=== PATIENT | female | born 1950 | race Caucasian/White ===

== ENCOUNTER 2019-01-19 07:23 | Day surgery (SDC) | payer OTHER ==
--- NOTE | 2019-01-17 13:17 | RAD REPORT ---
EXAM DESCRIPTION: Leah Thomas (2 Views)01/17/2019 1:09 pm CLINICAL HISTORY: Hypertension preop for cardiac catheterization COMPARISON: None FINDINGS: The lungs appear clear of acute infiltrate. The heart is mildly enlarged IMPRESSION: No acute abnormalities displayed
[2019-01-17 14:11] LABS: Absolute Lymphocytes (CBC) 4.5 K/uL (0.7-4.9); Basophils % 0.8 % (0-1.3); Hematocrit 36.1 % (36.0-45.0); Lymphocytes % 45.1 % (15.3-44.8); MPV 9.5 fL (7.6-11.3); RBC Red Blood Cell Count 4.17 M/uL (3.86-4.86)
[2019-01-17 14:13] LABS: Protime INR 1.03
[2019-01-17 14:22] LABS: Potassium 4.3 mmol/L (3.5-5.1)
[2019-01-17 14:54] LABS: Blood Morphology Comment NOT SEEN (NOT SEEN); Platelet Estimate ADEQ
--- NOTE | 2019-01-18 07:14 | EKG ---
Test Date: 2019-01-17 Test Time: 12:59:16 Dietary Server: TYRONE MEASUREMENT RESULTS: Intervals: Rate: 69 NM: 194 QRSD: 82 QT: 390 QTc: 417 [place]: P: 41 NM: 194 QRS: 33 T: 61 INTERPRETIVE STATEMENTS: Normal sinus rhythm Nonspecific ST and T wave abnormality Abnormal ECG Compared to ECG 06/23/2015 05:54:51 ST (T wave) deviation now present Ventricular premature complex(es) no longer present Electronically Signed On 01-18-19 07:13:52 CDT by Eliazar Davila
[~2019-01-19 07:23] MED LIST: NA CHLORIDE 0.9% 0 ML ONE
--- OUTSIDE RECORDS SUMMARY | 2019-01-19 07:26 | XMS REPORT ---
:1950 Author Organization [facility] Address [address] [place] [address] Dr. Stone [address] [place] [address] Care Team Providers Name Role Phone J LUIS ALEGRE Unavailable Unavailable Problems This patient has no known problems. Allergies, Adverse Reactions, Alerts This patient has no known allergies or adverse reactions. Medications This patient has no known medications. Results Test Description Test Time Test Comments Text Results Atomic Results Result Comments TISSUE EXAM 2018-01-17 15:36:00 Surgical Pathology Report Case: [id number] Authorizing Provider: J Luis Alegre MD Collected: 01/13/2018 1434 Ordering Location: [facility] Endoscopy Received: 01/13/2018 1601 Services Pathologist: Hector Wild MD Specimen: Rectal, RECTAL NEUROENDOCRINE LESION - ESD PART A RECTAL LESION, ENDOSCOPIC MUCOSAL RESECTION:WELL DIFFERENTIATED NEUROENDOCRINE NEOPLASM, COMPLETELY EXCISED.SEE DIAGNOSTIC COMMENT. Signing Pathologist Direct Phone Line: [phone] signed by Hector Wild MD on 01/17/2018 at 3:36 PMImmunohistochemical studies performed on block A5 demonstrate the neoplastic cells to be positive for synaptophysin, CD56, and Cam 5.2. They are negative for chromogranin. Proliferative index by Ki-67 is approximately less than 2%. Mitotic index is less than 1 per 10 high power field. 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 On the surface is a central submucosal nodule measuring 0.6 x 0.4 x 0.2 cm located 0.3 cm from its closest approach to the peripheral inked margin. The specimen is not oriented.Ink code: Periphery-blue, deep-black.The specimen is serially sectioned and submitted entirely in A1 through A7.Pictures are taken. CG/ew Performed. The following special studies were performed on this case and the interpretation is incorporated in the diagnostic report above:BLOCK A4- CAM 5.2, SYNAPTOPHYSIN, CHROMOGRANIN, CD56, KI-67The immunohistochemistry test was developed and its performance characteristics determined by [facility], Pathology Laboratory. It has not been cleared or approved by the U.S. Food and Drug Administration. The FDA has determined that such clearance or approval is not necessary. The test is used for clinical purposes. It should not be regarded as investigational or for research. This laboratory is certified under the Clinical Laboratory Improvement Amendments of 1988 (CLIA-88) as qualified to perform high complexity clinical laboratory testing. POCT-GLUCOSE METER 2018-01-14 06:03:00 Test Item Value Reference Range Comments POC-GLUCOSE METER (BEAKER) (test 191 mg/dL 70-110 TESTED AT [facility] [address] [place] [address] [id number]) [facility] [address] POCT-GLUCOSE [id number] 12:20:00 Test Item Value Reference Range Comments POC-GLUCOSE METER (BEAKER) 206 mg/dL 70-110 TESTED AT [address] (test [id number]=[id number]) [place] [id number]
--- OUTSIDE RECORDS SUMMARY | 2019-01-19 07:26 | XMS REPORT ---
:1950 Author Organization [employer] Care Team Providers Name Role Phone Severino Baeza Provider Role Unavailable Allergies No Known Allergies Problems Problem Type Condition Code Onset Dates Condition Status Problem Primary osteoarthritis of right knee M17.11 Active Problem Primary osteoarthritis of left knee M17.12 Active Medications No Known Medications Results No Known Results Summary Purpose eClinicalWorks Submission
--- OUTSIDE RECORDS SUMMARY | 2019-01-19 07:26 | XMS REPORT | Clinical Summary ---
:1950 Author Organization [facility] Address [address] [place] [address] Care Team Providers Name Role Phone Monica Edwards Jennifer Primary Care Provider Allergies Active Allergy Reactions Severity Noted Date Comments Prednisone Nausea And Vomiting 12/14/2017 flushed Medications Medication Sig Dispensed Refills Start Date End Date Status liraglutide 0.6 Inject 0 Active mg/0.1 mL (18 mg/3 subcutaneously. mL) PnIj insulin regular hum Inject 85 Units 0 Active U-500 conc (HUMULIN subcutaneously 2 R U-500, CONC, (two) times daily. INSULIN) 500 unit/mL Soln metFORMIN Take 1,000 mg by 0 Active (GLUCOPHAGE) 1000 mouth 2 (two) times MG tablet daily with breakfast and dinner. colesevelam Take 1,875 mg by 0 Active (WELCHOL) 625 mg mouth 2 (two) times tablet daily with breakfast and dinner. lisinopril Take 40 mg by mouth 0 Active (PRINIVIL,ZESTRIL) daily. 40 MG tablet metoprolol Take 100 mg by mouth 0 Active (TOPROL-XL) 100 MG daily. 24 hr tablet fexofenadine Take 180 mg by mouth 0 Active (SHER) 180 MG daily. tablet lansoprazole Take 30 mg by mouth 0 Active (PREVACID) 30 MG daily. capsule celecoxib Take 100 mg by mouth 0 Active (CELEBREX) 100 MG every 12 (twelve) capsule hours as needed for Pain. pregabalin (LYRICA) Take 100 mg by mouth 0 Active 100 MG capsule 2 (two) times daily. Active Problems No known active problems Social History Tobacco Use Types Packs/Day Years Used Date Never Smoker Smokeless Tobacco: Never Used Alcohol Use Drinks/Week oz/Week Comments No Sex Assigned at Date Recorded Not on file Job Start Date Occupation Industry Not on file Not on file Not on file Travel History Travel Start Travel End No recent travel history available. Last Filed Vital Signs Not on file Plan of Treatment Not on file Results Not on fileafter 01/18/2018 Insurance Payer Benefit Plan / Subscriber ID Type Phone Address Group [employer] - [employer] MEDICARE xxxxxxxx [facility] [phone] [address] MEDICARE MGD HMO POS [id number] [place] [address]
--- OUTSIDE RECORDS SUMMARY | 2019-01-19 07:26 | XMS REPORT ---
:1950 Author Organization eClinicalWorks Care Team Providers Name Role Phone Severino Baeza Provider Role Unavailable Allergies, Adverse Reactions, Alerts Substance Reaction Event Type Prednisone Info Not Available Drug Allergy Problems Problem Type Condition Code Onset Dates Condition Status Problem Primary osteoarthritis of right M17.11 Active knee Problem Primary osteoarthritis of left knee M17.12 Active Assessment Pain in joint of left knee M25.562 Active Assessment Pain in joint of right knee M25.561 Active Assessment Primary osteoarthritis of left knee M17.12 Active Assessment Primary osteoarthritis of right M17.11 Active knee Medications Medication Code Code Instructions Start End Status Dosage System Date Date HumuLIN R U-500 [facility] [id number] 500 UNIT/ML Active INJECT KwikPen Subcutaneous UNDER THE SKIN 120 UNITS TWICE A DAY Lisinopril [facility] 56178827627 40 MG Oral Active TAKE 1 TABLET BY MOUTH EVERY DAY aspirin [facility] 0 May 12, Active not 2018 defined Spironolactone [facility] 37084878762 50 MG Oral Active TAKE 1 TABLET BY MOUTH EVERY DAY OneTouch Verio [facility] [id number] - In Vitro Active USE TO CHECK BLOOD SUGARS ONCE DAILY Welchol [facility] 31369271167 625 MG Oral Active TAKE 2 TABLETS BY MOUTH TWICE A DAY WITH FOOD Victoza [facility] 09184000016 18 MG/3ML Active INJECT Subcutaneous UNDER THE SKIN 1.8MG EVERY DAY Metformin HCl [facility] 41716754171 1000 MG Oral Active TAKE 1 TABLET BY MOUTH TWICE A DAY WITH A MEAL BD Pen Needle [facility] 06676811174 32G X 4 MM Active USE 3 Anni U/F TIMES A DAY [place]rica ND 54855690423 75 MG Orally May 12, Active 1 capsule Once a day 2017 Viberzi [facility] 76346155779 75 MG Oral Active (Schedule IV Drug) TAKE 1 TABLET BY MOUTH TWICE A DAY Metoprolol [facility] 90067135949 100 MG Oral Active TAKE 1 Succinate ER TABLET BY MOUTH EVERY DAY Results Name Result Date Reference Range Unit Abnormality Flag Physical Therapy Summary Purpose eClinicalWorks Submission
--- OUTSIDE RECORDS SUMMARY | 2019-01-19 07:26 | XMS REPORT | Clinical Summary ---
:1950 Author Organization [facility] Address [address] [place] [address] Care Team Providers Name Role Phone Monica Edwards MD Primary Care Provider Allergies Active Allergy Reactions Severity Noted Date Comments Pollen Extracts 11/16/2017 Red itchy eyes, sneezing, runny nose Medications Medication Sig Dispensed Refills Start Date End Date Status lisinopril Take 40 mg by 4 09/04/2017 Active (PRINIVIL,ZESTRIL) mouth daily. 40 mg tablet metoprolol Take 100 mg by 3 09/06/2017 Active succinate XL mouth 2 (two) (TOPROL-XL) 100 mg times a day. 24 hr tablet diclofenac sodium 3 Apply 0 Active % gel topically. Rub 1-2 grams (1 gram=pea size) on affected areas 3-4 times daily doxepin (ZONALON) 5 Apply 0 Active % cream topically 3 (three) times a day. ub 1-2 grams (1 gram=pea size) on affected areas 3-4 times daily lansoprazole Take 30 mg by 0 Active (PREVACID) 30 MG mouth. capsule fexofenadine HCl Take 90 mg by 0 Active (FEXOFENADINE ORAL) mouth. iron,carb/vit C/vit Take 1 capsule 0 02/21/2018 Active B12/folic (IRON 100 by mouth. PLUS ORAL) blood sugar One touch 300 strip 6 03/18/2018 Active diagnostic strips verio test strip test strips strips, Use to check blood sugars 3-4 times daily HUMULIN R U-500, INJECT 120 18 Syringe 2 09/15/2018 Active CONC, KWIKPEN 500 UNITS UNDER unit/mL (3 mL) THE SKIN 2 insulin pen (TWO) TIMES A DAY. aspirin (ECOTRIN) Take 81 mg by 0 Active 81 MG enteric mouth daily. coated tablet cholecalciferol, Take 2,000 0 Active vitamin D3, Units by mouth (VITAMIN D3) 2,000 daily. unit capsule capsule spironolactone TAKE 1 TABLET 90 tablet 0 11/02/2018 Active (ALDACTONE) 50 MG BY MOUTH EVERY tabletIndications: DAY Essential hypertension ferrous sulfate, Take by mouth. 0 Active dried (IRON, DRIED, ORAL) multivitamin Take 1 capsule 0 Active capsule by mouth daily. empagliflozin-metfo Take 2 tablets 60 each 2 11/15/2018 Active rmin 5-1,000 mg by mouth tablet, IR & ER, daily. biphasic 24hrIndications: Type 2 diabetes mellitus with complication, without long-term current use of insulin (HCC) insulin degludec Inject 150 45 mL 0 11/15/2018 Active (TRESIBA FLEXTOUCH Units under U-200) 200 unit/mL the skin (3 mL) insulin daily. penIndications: Type II diabetes mellitus with manifestations, uncontrolled (HCC) pregabalin (LYRICA) Take 1 capsule 180 capsule 2 11/23/2018 Active 150 MG capsule (150 mg total) 0 by mouth 2 (two) times a day for 270 days. blood sugar USE TO CHECK 100 strip 11 12/13/2018 Active diagnostic strips BLOOD SUGARS (ONETOUCH VERIO) ONCE DAILY strip test strips WELCHOL 625 mg TAKE 2 TABLETS 360 tablet 0 12/26/2018 Active tablet (1,250 MG TOTAL) BY MOUTH 2 (TWO) TIMES A DAY WITH MEALS FOR 90 DAYS. NOVOLOG FLEXPEN INJECT 30 27 mL 1 01/03/2019 Active U-100 INSULIN 100 UNITS UNDER unit/mL (3 mL) THE SKIN 3 insulin (THREE) TIMES penIndications: A DAY WITH Type II diabetes MEALS. mellitus with manifestations, uncontrolled (HCC) TRESIBA FLEXTOUCH INJECT 100 45 Syringe 0 01/03/2019 Active U-200 200 unit/mL UNITS UNDER (3 mL) insulin THE SKIN penIndications: DAILY. Type II diabetes mellitus with manifestations, uncontrolled (HCC) liraglutide Inject 0.3 mL 9 pen 0 01/16/2019 Active (VICTOZA) 0.6 (1.8 mg total) mg/0.1 mL (18 mg/3 under the skin mL) pen injector daily. pen needle, To use with 100 each 2 01/16/2019 Active diabetic (BD Victoza once ULTRA-FINE BI PEN daily. NEEDLE) 32 gauge x " needleIndications: Type II diabetes mellitus with manifestations, uncontrolled (HCC) pen needle, Use to inject 350 each 2 01/16/2019 Active diabetic (BD Novolog ULTRA-FINE BI PEN insulin before NEEDLE) 32 gauge x each meal and " to correct needleIndications: elevated blood Type II diabetes sugar if mellitus with needed up to 4 manifestations, times daily. uncontrolled (HCC) insulin regular hum Inject 105 0 09/28/2016 Discontinued U-500 conc (HumuLIN Units under 9 R U-500, Conc, the skin 2 Kwikpen) 500 (two) times a unit/mL (3 mL) day. insulin pen metFORMIN Take 1 tablet 1 09/06/2017 Discontinued (GLUCOPHAGE) 1,000 by mouth 2 9 mg tablet (two) times a day. blood sugar Use to check 100 strip 11 12/06/2017 Discontinued diagnostic strips blood sugars 8 strip test strips 3-4 times daily colesevelam Take 2 tablets 360 tablet 0 12/21/2017 (WELCHOL) 625 mg (1,250 mg 8 tabletIndications: total) by Benign mouth 2 (two) neuroendocrine times a day tumor of rectum for 90 days. pregabalin (LYRICA) Take 1 capsule 90 capsule 2 12/21/2017 75 MG (75 mg total) 8 capsuleIndications: by mouth 3 Polyneuropathy (three) times associated with a day for 90 underlying disease days. (HCC) celecoxib Take 1 capsule 60 capsule 0 12/21/2017 Discontinued (CeleBREX) 200 MG (200 mg total) 8 capsuleIndications: by mouth 2 Spondylosis of (two) times a lumbar region day for 30 without myelopathy days. or radiculopathy liraglutide Inject 0.3 mL 9 pen 1 12/28/2017 Discontinued (VICTOZA) 0.6 (1.8 mg total) 9 mg/0.1 mL (18 mg/3 under the skin mL) pen injector daily. pen needle, To use with 100 each 2 12/28/2017 Discontinued diabetic (BD Victoza pen 9 ULTRA-FINE BI PEN NEEDLE) 32 gauge x 5/32" needle celecoxib Take 1 capsule 60 capsule 1 01/20/2018 Discontinued (CeleBREX) 200 MG (200 mg total) 8 capsuleIndications: by mouth 2 Spondylosis of (two) times a lumbar region day for 30 without myelopathy days. or radiculopathy celecoxib Take 200 mg by 0 Discontinued (CeleBREX) 200 MG mouth 2 (two) 8 capsule times a day. spironolactone Take 1 tablet 30 tablet 2 03/08/2018 Discontinued (ALDACTONE) 50 MG (50 mg total) 8 tabletIndications: by mouth Essential daily. hypertension tiZANidine Take 1 tablet 30 tablet 0 03/08/2018 (ZANAFLEX) 2 MG (2 mg total) 8 tabletIndications: by mouth every Chronic midline low 8 (eight) back pain without hours as sciatica needed for muscle spasms for up to 30 days. celecoxib TAKE 1 CAPSULE 60 capsule 0 03/18/2018 (CeleBREX) 200 MG (200 MG TOTAL) 8 capsuleIndications: BY MOUTH 2 Spondylosis of (TWO) TIMES A lumbar region DAY FOR 30 without myelopathy DAYS. or radiculopathy celecoxib Take 1 capsule 60 capsule 0 03/18/2018 Discontinued (CeleBREX) 200 MG (200 mg total) 8 capsule by mouth 2 (two) times a day. spironolactone Take 1 tablet 90 tablet 0 05/02/2018 Discontinued (ALDACTONE) 50 MG (50 mg total) 9 tabletIndications: by mouth Essential daily. hypertension LYRICA 75 mg TAKE 1 CAPSULE 90 capsule 0 05/27/2018 Discontinued capsule BY MOUTH THREE 8 TIMES A DAY pregabalin (LYRICA) Take 1 capsule 60 capsule 0 06/06/2018 Discontinued 75 MG capsule (75 mg total) 9 by mouth 2 (two) times a day for 30 days. colesevelam Take 2 tablets 360 tablet 0 05/27/2018 Discontinued (WELCHOL) 625 mg (1,250 mg 9 tablet total) by mouth 2 (two) times a day with meals for 90 days. insulin regular hum Inject 120 6 Syringe 2 06/21/2018 Discontinued U-500 conc (HumuLIN Units under 9 R U-500, Conc, the skin 2 Kwikpen) 500 (two) times a unit/mL (3 mL) day. insulin pen pen needle, To use with 100 each 2 06/21/2018 Discontinued diabetic (BD Victoza pen 9 ULTRA-FINE BI PEN NEEDLE) 32 gauge x 5/32" needle pen needle, To use with 100 each 2 06/30/2018 Discontinued diabetic (BD Victoza and 9 ULTRA-FINE BI PEN Humalog pens - NEEDLE) 32 gauge x patient using 5/32" needle 5 needles daily spironolactone TAKE 1 TABLET 90 tablet 0 08/04/2018 Discontinued (ALDACTONE) 50 MG BY MOUTH EVERY 9 tabletIndications: DAY Essential hypertension pregabalin (LYRICA) Take 1 capsule 60 capsule 0 08/16/2018 Discontinued 75 MG capsule (75 mg total) 9 by mouth 2 (two) times a day for 30 days. LYRICA 75 mg TAKE 1 CAPSULE 60 capsule 0 09/19/2018 capsule BY MOUTH TWICE 9 A DAY WELCHOL 625 mg TAKE 2 TABLETS 360 tablet 0 09/28/2018 Discontinued tablet (1,250 MG 9 TOTAL) BY MOUTH 2 (TWO) TIMES A DAY WITH MEALS FOR 90 DAYS. insulin degludec Inject 100 45 mL 0 10/10/2018 Discontinued (TRESIBA FLEXTOUCH Units under 9 U-200) 200 unit/mL the skin (3 mL) insulin daily. penIndications: Type II diabetes mellitus with manifestations, uncontrolled (HCC) metFORMIN Take 1 tablet 180 tablet 1 10/10/2018 Discontinued (GLUCOPHAGE) 1,000 (1,000 mg 9 mg total) by tabletIndications: mouth 2 (two) Type II diabetes times a day mellitus with with meals. manifestations, uncontrolled (HCC) insulin ASPART Inject 30 27 mL 1 10/10/2018 Discontinued (NovoLOG Flexpen Units under 9 U-100 Insulin) 100 the skin 3 unit/mL (3 mL) (three) times insulin a day with penIndications: meals. Type II diabetes mellitus with manifestations, uncontrolled (HCC) LYRICA 75 mg TAKE ONE 60 capsule 0 10/21/2018 Discontinued capsule CAPSULE BY 9 MOUTH TWICE A DAY sulfamethoxazole-tr Take 1 tablet 14 tablet 0 11/15/2018 imethoprim (BACTRIM by mouth 2 9 DS) 800-160 mg per (two) times a tabletIndications: day for 7 Acute cystitis with days. hematuria pregabalin (LYRICA) Take 1 capsule 180 capsule 0 11/15/2018 Discontinued 150 MG capsule (150 mg total) 9 by mouth 2 (two) times a day for 90 days. nitrofurantoin, Take 1 capsule 14 capsule 0 12/01/2018 macrocrystal-monohy (100 mg total) 9 drate, (MACROBID) by mouth 2 100 MG capsule (two) times a day for 7 days. NOVOLOG FLEXPEN INJECT 30 27 pen 1 12/05/2018 Discontinued U-100 INSULIN 100 UNITS UNDER 9 unit/mL (3 mL) THE SKIN 3 insulin (THREE) TIMES penIndications: A DAY WITH Type II diabetes MEALS. mellitus with manifestations, uncontrolled (HCC) Active Problems Problem Noted Date Hypertension 12/21/2017 Encounters Date Type Specialty Care Team Description 01/16/2019 Orders Only Family Medicine Monica Edwards Type II diabetes MD Jennifer mellitus with manifestations, uncontrolled (HCC) 01/03/2019 Refill Family Medicine Monica Edwards Type II kayli Rodriguez MD mellitus with manifestations, uncontrolled (HCC) 12/31/2018 Refill Family Monica Andrews Type DEBORA Rodriguez MD mellitus with manifestations, uncontrolled (HCC) 12/25/2018 Refill Family Medicine Monica Edwards MD 12/13/2018 Refill Family Medicine Monica Edwards MD 12/07/2018 Orders Only Family Medicine Jha, Acute cystitis with GUILLERMO [place] hematuria (Primary Dx) 12/04/2018 Refill Family Medicine Monica Edwards Type II kayli Rodriguez MD mellitus with manifestations, uncontrolled (HCC) 12/01/2018 Refill Family Medicine Jha, GUILLERMO [place] 11/23/2018 Refill Family Medicine Jha, Yolis, GUILLERMO 11/23/2018 Orders Only Family Medicine Jha, Acute cystitis with GUILLERMO [place] hematuria (Primary Dx) 11/15/2018 Office Visit Family Medicine Monica Edwards Acute cystitis with hematuria (Primary Dx); MD Jennifer Type 2 diabetes mellitus with complication, without long-term current use of insulin (HCC); Type II diabetes mellitus with manifestations, uncontrolled (HCC); Elevated liver enzymes 11/09/2018 Orders Only Orthopedic Surgery Alona Shepherd MA 11/02/2018 Refill Family Medicine Monica Edwards Essential hypertension MD Jennifer 10/21/2018 Refill Family Medicine Monica Edwards MD 10/10/2018 Office Visit Family Medicine Monica Edwards Type II diabetes mellitus with manifestations, uncontrolled (HCC) (Primary Dx); MD Jennifer Essential hypertension; Diabetic peripheral neuropathy associated with type 2 diabetes mellitus (HCC); Chest pain, atypical; Hip pain, bilateral; BMI 40.0-44.9, adult (HCC) 09/27/2018 Refill Family Medicine Monica Edwards MD 09/22/2018 Refill Family Medicine Monica Edwards MD 09/16/2018 Refill Family Medicine Monica Edwards MD 09/14/2018 Refill Family Medicine Monica Edwards MD 08/16/2018 Refill Family Medicine Monica Edwards MD 08/02/2018 Refill Family Medicine Monica Edwards Essential hypertension MD Jennifer 06/30/2018 Refill Family Medicine Jha, Yolis, GUILLERMO 06/21/2018 Refill Family Medicine Jha, Yolis, GUILLERMO 05/27/2018 Refill Family Medicine Monica Edwards MD 05/26/2018 Refill Family Medicine Jha, Yolis, GUILLERMO 05/23/2018 Refill Family Medicine Monica Edwards MD 05/02/2018 Refill Family Medicine Luis A, Essential hypertension GUILLERMO Guzmán 04/22/2018 Telephone Family Medicine Arielle Gunn MA 04/06/2018 Hospital Encounter Radiology Monica Edwards Breast cancer screening MD Jennifer 03/18/2018 Refill Family Medicine Jha, Yolis, GUILLERMO 03/16/2018 Refill Family Medicine Monica Edwards 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 or radiculopathy 03/08/2018 Office Visit Family Medicine Monica Edwards Type 2 diabetes mellitus with complication, without long-term current use of insulin (Primary Dx ); MD Jennifer Essential hypertension; Neuroendocrine tumor; Chronic midline low back pain without sciatica; BMI 33.0-33.9,adult; Breast cancer screening 01/20/2018 Refill Family Medicine Jha Spondylosis of lumbar GUILLERMO [place] region without myelopathy or radiculopathy 01/18/2018 Refill Family Medicine Monica Edwards 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 or radiculopathy after 01/18/2018 Immunizations Name Dates Previously Given Next Due FLUZONE HIGH-DOSE PF 03/08/2017 Family History Medical History Relation Name Comments Alcohol abuse Brother Diabetes Brother Emphysema Father Heart attack Father Lung cancer Mother Relation Name Status Comments Brother Father Mother Social History Tobacco Use Types Packs/Day Years Used Date Never Smoker Smokeless Tobacco: Never Used Alcohol Use Drinks/Week oz/Week Comments Yes 6 mixed drinks a year Sex Assigned at Date Recorded Not on file Job Start Date Occupation Industry Not on file Not on file Not on file Travel History Travel Start Travel End No recent travel history available. Last Filed Vital Signs Vital Sign Reading Time Taken Blood Pressure 136/75 11/15/2018 11:56 AM CDT Pulse 73 11/15/2018 11:56 AM CDT Temperature 36.8 C (98.2 F) 11/15/2018 11:56 AM CDT Respiratory Rate 20 11/15/2018 11:56 AM CDT Oxygen Saturation 97% 11/15/2018 11:56 AM CDT Inhaled Oxygen Concentration - - Weight 109 kg (240 lb) 11/15/2018 11:56 AM CDT Height 163.8 cm (5' 4.5") 11/15/2018 11:56 AM CDT Body Mass Index 40.56 11/15/2018 11:56 AM CDT Plan of Treatment Date Type Specialty Care Team Description 02/08/2019 Office Visit Family Medicine Monica Edwards MD [address] [place] [address] [place] [id number] [phone] Health Maintenance Due Date Last Done Comments INFLUENZA VACCINE 01/12/2019 05/05/2017, 04/14/2017, 03/08/2017 DIABETIC FOOT EXAM 03/08/2019 03/08/2018, 03/08/2018 URINE MICROALBUMIN 03/08/2019 03/08/2018 65+ PNEUMOCOCCAL VACCINE (2 10/11/2019 11/24/2011 Postponed from 2014 of 2 - PPSV23) (Patient Refused) SHINGLES VACCINES (#1) 10/11/2019 Postponed from 1999 (Patient Refused) DIABETIC RETINAL EYE EXAM 03/31/2020 03/31/2018 BREAST CANCER SCREENING 04/06/2020 04/06/2018 COLONOSCOPY SCREENING 09/16/2027 09/15/2017 Procedures Procedure Name Priority Date/Time Associated Diagnosis Comments URINALYSIS, COMPLETE, Routine 12/14/2018 11:56 Acute cystitis with Results for this WITH REFLEX TO CULTURE AM CDT hematuria procedure are in the results section. URINALYSIS, COMPLETE, Routine 11/23/2018 2:59 Acute cystitis with Results for this WITH REFLEX TO CULTURE PM CDT hematuria procedure are in the results section. URINE CULTURE Routine 11/23/2018 2:59 Results for this PM CDT procedure are in the results section. URINE CULTURE Routine 11/17/2018 12:35 Acute cystitis with Results for this PM CDT hematuria procedure are in the results section. POC URINALYSIS Routine 11/15/2018 12:43 Acute cystitis with Results for this DIPSTICK PM CDT hematuria procedure are in the results section. B NATRIURETIC PEPTIDE Routine 10/10/2018 11:56 Results for this AM CDT procedure are in the results section. VITAMIN B12 LEVEL Routine 10/10/2018 11:56 Diabetic peripheral Results for this AM CDT neuropathy procedure are in associated with type the results 2 diabetes mellitus section. (HCC) COMPREHENSIVE Routine 10/10/2018 11:56 Type II diabetes Results for this METABOLIC PANEL AM CDT mellitus with procedure are in manifestations, the results uncontrolled (HCC) section. CBC WITH PLATELET AND Routine 10/10/2018 11:56 Type II diabetes Results for this DIFFERENTIAL AM CDT mellitus with procedure are in manifestations, the results uncontrolled ([facility]) section. POC GLYCOSYLATED Routine 10/10/2018 10:38 Type II diabetes Results for this HEMOGLOBIN (HGB A1C) AM CDT mellitus with procedure are in manifestations, the results uncontrolled (HCC) section. MAMMO BREAST SCREEN Routine 04/06/2018 11:18 Breast cancer Results for this TOMOSYNTHESIS AM CDT screening procedure are in BILATERAL the results section. MICROALBUMIN / Routine 03/08/2018 10:26 Type 2 diabetes Results for this CREATININE URINE RATIO AM CDT mellitus with procedure are in complication, the results without long-term section. current use of insulin HEMOGLOBIN A1C Routine 03/08/2018 10:26 Type 2 diabetes Results for this AM CDT mellitus with procedure are in complication, the results without long-term section. current use of insulin COMPREHENSIVE Routine 03/08/2018 10:26 Type 2 diabetes Results for this METABOLIC PANEL AM CDT mellitus with procedure are in complication, the results without long-term section. current use of insulin CBC WITH PLATELET AND Routine 03/08/2018 10:26 Type 2 diabetes Results for this DIFFERENTIAL AM CDT mellitus with procedure are in complication, the results without long-term section. current use of insulin after 01/18/2018 Results URINALYSIS, COMPLETE, WITH REFLEX TO CULTURE (12/14/2018 11:56 AM CDT)Only the most recent of2 resultswithin the time period is included. Color, UA YELLOW YELLOW [facility] [place] Appearance CLEAR CLEAR [facility] [place] Specific gravity, 1.010 1.001 - 1.035 [facility] urine [place] pH, urine 6.0 5.0 - 8.0 [facility] [place] Glucose, urine 2+ (A) NEGATIVE [facility] [place] Bilirubin, UA NEGATIVE NEGATIVE [facility] [place] Ketones, UA NEGATIVE NEGATIVE [facility] [place] Occult blood, NEGATIVE NEGATIVE [facility] urine [place] Protein, UA 1+ (A) NEGATIVE [facility] [place] Nitrite, UA NEGATIVE NEGATIVE [facility] [place] Leukocyte NEGATIVE NEGATIVE [facility] esterase, UA [place] WBC, UA NONE SEEN < OR=5 /HPF [facility] [place] RBC, UA NONE SEEN < OR=2 /HPF [facility] [place] Squamous NONE SEEN < OR=5 /HPF [facility] epithelial cells, [place] UA Bacteria, UA NONE SEEN NONE SEEN /HPF [facility] [place] Hyaline casts, UA NONE SEEN NONE SEEN /LPF [facility] [place] Reflex NO CULTURE INDICATED [facility] Comment: [place] NO COLLECTION DATE RECEIVED. WE HAVE USED THE DATE THE SPECIMEN WAS RECEIVED BY THIS LABORATORY THE COLLECTION DATE. IF THIS IS INCORRECT, PLEASE CONTACT CLIENT SERVICES. PHONE NUMBER: [phone] Specimen Resulting Agency Comment Performing Organization Information: Site ID: [id number] Name: [facility] Lab Address: [address] [place] [phone] Director: Alanna Baker Performing Organization Address [facility] Phone Number Potential [address] [address] Urine culture (11/23/2018 2:59 PM CDT)Only the most recent of2 resultswithin the time period is included. Urine culture SEE NOTE (A) [facility] Comment: [place] CULTURE, URINE, ROUTINE MICRO NUMBER:[id number] TEST STATUS: FINAL SPECIMEN SOURCE: URINE SPECIMEN QUALITY:ADEQUATE RESULT:Greater than 100,000 CFU/mL of Escherichia coli E.coli INT CARLIE AMOX/CLAVULANATE S 4 AMPICILLIN R >=32 AMP/SULBACTAMI 16 CEFAZOLINNR<=4 2 CEFEPIME S <=1 CEFTRIAXONES <=1 CIPROFLOXACINS <=0.25 GENTAMICIN S <=1 IMIPENEM S <=0.25 LEVOFLOXACIN S <=0.12 NITROFURANTOIN S <=16 PIP/TAZOBACTAM S <=4 TOBRAMYCIN S <=1 TRIMETHOPRIM/SULFA R >=320 S=SusceptibleI=IntermediateR=Resistant*=Not Tested NR=Not ReportedNN=See Therapy Comments THERAPY COMMENTS Note 1: For infections other than uncomplicated UTI caused by E. coli, K. pneumoniae or P. mirabilis: Cefazolin is resistant if CARLIE > or=8 mcg/mL. (Distinguishing susceptible versus intermediate for isolates with CARLIE < or=4 mcg/mL requires additional testing.) Note 2: For uncomplicated UTI caused by E. coli, K. pneumoniae or P. mirabilis: Cefazolin is susceptible if CARLIE <32 mcg/mL and predicts susceptible to the oral agents cefaclor, cefdinir, cefpodoxime, cefprozil, cefuroxime, cephalexin and loracarbef. Specimen Narrative Performed At FASTING:YES [facility] FASTING: YES Resulting Agency Comment Performing Organization Information: Site ID: [id number] Name: [facility] Lab Address: [address] [place] [phone] Director: Alanna Baker Performing Organization Address [facility] Phone Number Potential [place] [address] [place] [address] POC urinalysis dipstick (11/15/2018 12:43 PM CDT) Pathologist [facility] Color urine, POC Talya Clarity urine, POC Clear Glucose urine, POC Negative Negative Bilirubin urine, POC Negative Negative Ketones urine, POC Negative Negative Specific gravity 1.020 1.005 - 1.030 urine, POC Blood urine, POC Moderate (A) Negative pH urine, POC 5.5 5.0, 5.5, 6.0, 6.5, 7.0, 7.5, 8.0, 8.5 Protein urine, POC 1+ (A) Negative Urobilinogen urine, <2.0 <2.0 POC Nitrite urine, POC Negative Negative Leukocyte esterase Large (A) Negative urine, POC Specimen Urine CBC with platelet and differential (10/10/2018 11:56 AM CDT)Only the most recent of2 resultswithin the time period is included. Pathologist [facility] WBC 10.5 3.8 - 10.8 [facility] Thousand/uL [place] RBC 4.34 3.80 - 5.10 [facility] Million/uL [place] HGB 12.3 11.7 - 15.5 [facility] g/dL [place] HCT 37.7 35.0 - 45.0 % [facility] MCV 86.9 80.0 - 100.0 [facility] MCH 28.3 27.0 - 33.0 pg [facility] [place] MCHC 32.6 32.0 - 36.0 [facility] g/dL [place] RDW 13.9 11.0 - 15.0 % [facility] Platelet count 311 140 - 400 [facility] Thousand/uL [place] MPV 10.7 7.5 - 12.[address] [facility] Neutrophils, absolute 5,114 1,500 - 7,800 [facility] cells/uL [place] Lymphocytes, absolute 4,085 (H) 850 - 3,900 [facility] cells/uL [place] Monocytes, absolute 809 200 - 950 [facility] cells/uL [place] Eosinophils, absolute 410 15 - 500 [facility] cells/uL [place] Basophils, absolute 84 0 - 200 [facility] cells/uL [place] Neutrophils 48.7 % [facility] [place] Lymphocytes 38.9 % [facility] [place] Monocytes 7.7 % [facility] [place] Eosinophils 3.9 % [facility] [place] Basophils + RC 0.8 % [facility] [place] Specimen Blood Narrative Performed At FASTING:NO [facility] FASTING: NO Resulting Agency Comment Performing Organization Information: Site ID: [facility] Name: [facility] Lab Address: [address] [place] [phone] Director: Alanna Baker Performing Organization Address [facility] [place] [address] B natriuretic peptide (10/10/2018 11:56 AM CDT) Pathologist [facility] BNP 50 <100 pg/mL [facility] Comment: [place] BNP levels increase with age in the general population with the highest values seen in individuals greater than 75 years of age. Reference: J. Am. Crow. Cardiol. 2002; 40:976-982. Specimen Narrative Performed At FASTING:NO [facility] FASTING: NO Resulting Agency Comment Performing Organization Information: Site ID: [facility] Name: [employer] [facility] Lab Address: [address] [place] [phone] Director: Alanna Baker Performing Organization Address [facility] Phone Number [facility] [place] [address] Vitamin B12 level (10/10/2018 11:56 AM CDT) [facility] Vitamin B12 596 200 - 1,100 pg/mL [facility] [place] Specimen Blood Narrative Performed At FASTING:NO [facility] FASTING: NO Resulting Agency Comment Performing Organization Information: Site ID: [id number] Name: [facility] Address: [address] [place] [phone] Director: Alanna Baker Performing Organization Address [facility] Phone Number [place] [address] Comprehensive metabolic panel (10/10/2018 11:56 AM CDT)Only the most recent of2 resultswithin the time period is included. Pathologist [facility] Glucose 202 (H) 65 - 139 [employer] 3D Comment: mg/dL [place] Non-fasting reference interval BUN, whole blood 12 7 - 25 mg/dL [facility] [employer] [place] Creatinine 0.75 0.50 - 0.99 [facility] Comment: mg/dL [place] For patients >49 years of age, the reference limit for Creatinine is approximately 13% higher for people identified as -[place]. EGFR Non-Afr. 81 > OR=60 [facility] [place] mL/min/1.73m [place] 2 EGFR 94 > OR=60 [facility] [place] mL/min/1.73m [place] 2 BUN/creatinine NOT APPLICABLE 6 - 22 [facility] ratio (calc) [place] Sodium 139 135 - 146 [facility] mmol/L [place] Potassium 4.2 3.5 - 5.3 [facility] mmol/L [place] Chloride 105 98 - 110 [facility] mmol/L [place] CO2 23 20 - 32 [facility] mmol/L [place] Calcium 9.5 8.6 - 10.4 [facility] mg/dL [place] Protein 6.7 6.1 - 8.1 [facility] g/dL [place] Albumin, S 3.8 3.6 - 5.1 [facility] g/dL [place] Globulin, total 2.9 1.9 - 3.7 [facility] g/dL (calc) [place] Albumin/globulin 1.3 1.0 - 2.5 [facility] ratio (calc) [place] Total bilirubin 0.4 0.2 - 1.2 [facility] mg/dL [place] Alkaline 68 33 - 130 U/L [facility] phosphatase [place] AST 43 (H) 10 - 35 U/L [facility] [place] ALT 38 (H) 6 - 29 U/L [facility] [place] Specimen Blood Narrative Performed At FASTING:NO [facility] FASTING: NO Resulting Agency Comment Performing Organization Information: Site ID: [id number] Name: [facility] Address: [address] [place] [phone] Director: Alanna Baker Performing Organization Address City/State/Zipcode Phone Number KARO [employer] 3D [place] [phone] POC glycosylated hemoglobin (Hb A1C) (10/10/2018 10:38 AM CDT) POC Hemoglobin A1C 8.4 % Specimen Blood Mammo Breast Screen Tomosynthesis Bilateral (04/06/2018 11:18 AM CDT) Specimen Narrative Performed At PROCEDURE:MAMMO BREAST SCREEN TOMOSYNTHESIS [id number]/24/2018 [facility] 11:01 AM This patient's mammogram was interpreted with the assistance of computer-aided detection (CAD). Digital breast tomosynthesis (3D) imaging was performed. CLINICAL HISTORY:68-year-old female referred for screening mammogram.She reports no new or current breast complaints. FAMILY HISTORY:Family history of breast carcinoma diagnosed in patient's cousin. COMPARISON:None available. BREAST DENSITY:There are scattered areas of fibroglandular density. DIGITAL SCREENING MAMMOGRAPHY FINDINGS: There are no dominant masses, suspicious microcalcifications or unexplained architectural distortion to suggest malignancy. IMPRESSION: BI-RADS Category 1-Negative. RECOMMENDATION: Comparison with physical examination and annual mammography. This facility is accredited by [employer] [place] [employer] for Mammography. A negative x-ray report should not delay biopsy if a dominant or clinically suspicious mass is present. Not all cancers are identified by x-ray. [id number] The results of this exam have been sent to the patient. Performing Organization Address City/[facility]/Zipcode Phone Number BRITTANY [address] [place] [address] Microalbumin / creatinine urine ratio (03/08/2018 10:26 AM CDT) Creatinine, 139 20 - 275 [facility] urine, random mg/dL [place] Microalbumin, 29.9 See Note: [facility] urine Comment: mg/dL [place] Reference Range: Reference Range Not established Microalbumin/crea 215 (H) <30 mcg/mg [facility] tinine ratio Comment: creat [place] The ADA defines abnormalities in albumin excretion as follows: Category Result (mcg/mg creatinine) Normal<30 Microalbuminuria 30-299 Clinical albuminuria > YQ=308 The ADA recommends that at least two of three specimens collected within a 3-6 month period be abnormal before considering a patient to be within a diagnostic category. Specimen Urine Narrative Performed At FASTING:YES [facility] FASTING: YES Resulting Agency Comment Performing Organization Information: Site ID: [id number] Name: [facility] Address: [address] [place] [phone] Director: Alanna Baker Performing Organization Address City/[facility]/Zipcode Phone Number Potential [place] [address] [place], [place] [phone] Hemoglobin A1c (03/08/2018 10:26 AM CDT) Hemoglobin A1C 6.7 (H) <5.7 % of [facility] Comment: total Hgb [place] For someone without known diabetes, a hemoglobin A1c value of 6.5% or greater indicates that they may have diabetes and this should be confirmed with a follow-up test. For someone with known diabetes, a value <7% indicates that their diabetes is well controlled and a value greater than or equal to 7% indicates suboptimal control. A1c targets should be individualized based on duration of diabetes, age, comorbid conditions, and other considerations. Currently, no consensus exists regarding use of hemoglobin A1c for diagnosis of diabetes for children. Specimen Blood Narrative Performed At FASTING:YES [facility] FASTING: YES Resulting Agency Comment Performing Organization Information: Site ID: [id number] Name: [facility] Address: [address] [place] [phone] Director: Alanan Baker Performing Organization Address City/State/Zipcode Phone Number Potential [place] [address] [place] [phone] after 01/18/2018 Advance Directives Patient has advance care planning documents on file. For more information, please contact:Né[place] [address]
--- OUTSIDE RECORDS SUMMARY | 2019-01-19 07:27 | XMS REPORT ---
[...] knee M17.12 Active Assessment Primary osteoarthritis of left knee M17.12 Active Assessment Primary osteoarthritis of right knee M17.11 Active Medications Medication Code Code Instructions Start End Status Dosage System Date Date BD Pen Needle [facility] [id number] 32G X 4 MM Active USE 3 Anni U/F TIMES A DAY Spironolactone [facility] 24158043108 50 MG Oral Active TAKE 1 TABLET BY MOUTH EVERY DAY Metoprolol [facility] 33280572368 100 MG Oral Active TAKE 1 Succinate ER TABLET BY MOUTH EVERY DAY Welchol [facility] 47945534168 625 MG Oral Active TAKE 2 TABLETS BY MOUTH TWICE A DAY WITH FOOD Lyrica [place] 31532501035 75 MG Orally May 12, Active 1 capsule Once a day 2017 HumuLIN R U-500 [facility] 39128631069 500 UNIT/ML Active INJECT KwikPen Subcutaneous UNDER THE SKIN 120 UNITS TWICE A DAY Viberzi [facility] 19620606961 75 MG Oral Active (Schedule IV Drug) TAKE 1 TABLET BY MOUTH TWICE A DAY Victoza [facility] 99595285447 18 MG/3ML Active INJECT Subcutaneous UNDER THE SKIN 1.8MG EVERY DAY Metformin HCl [facility] 61951130855 1000 MG Oral Active TAKE 1 TABLET BY MOUTH TWICE A DAY WITH A MEAL Lisinopril [facility] 01057340189 40 MG Oral Active TAKE 1 TABLET BY MOUTH EVERY DAY aspirin [facility] 0 May 12, Active not 2018 defined ibuprofen [facility] 20809804423 Oral Active 1 tab OneTouch Verio [facility] 64341721412 - In Vitro Active USE TO CHECK BLOOD SUGARS ONCE DAILY Results No Known Results Summary Purpose eClinicalWorks Submission
--- OUTSIDE RECORDS SUMMARY | 2019-01-19 07:27 | XMS REPORT ---
[...] Start End Status Dosage System Date Date Metoprolol [facility] 66490322749 100 MG Oral Active TAKE 1 Succinate ER TABLET BY MOUTH EVERY DAY Welchol [facility] 82883664104 625 MG Oral Active TAKE 2 TABLETS BY MOUTH TWICE A DAY WITH FOOD Lyrica [facility] 73847219697 75 MG Orally May 12, Active 1 capsule Once a day 2017 aspirin [facility] 0 May 12, Active not 2017 defined Spironolactone [facility] 61364994254 50 MG Oral Active TAKE 1 TABLET BY MOUTH EVERY DAY Victoza [facility] 75755585420 18 MG/3ML Active INJECT Subcutaneous UNDER THE SKIN 1.8MG EVERY DAY HumuLIN R U-500 [facility] 25446481985 500 UNIT/ML Active INJECT KwikPen Subcutaneous UNDER THE SKIN 120 UNITS TWICE A DAY Lisinopril [facility] 77491058346 40 MG Oral Active TAKE 1 TABLET BY MOUTH EVERY DAY Metformin HCl [facility] 85209358715 1000 MG Oral Active TAKE 1 TABLET BY MOUTH TWICE A DAY WITH A MEAL ibuprofen [facility] 85468602237 Oral Active 1 tab Viberzi [facility] 45242959894 75 MG Oral Active (Schedule IV Drug) TAKE 1 TABLET BY MOUTH TWICE A DAY BD Pen Needle [facility] 78297156987 32G X 4 MM Active USE 3 Anni U/F TIMES A DAY OneTouch Verio [facility] 24721566853 - In Vitro Active USE TO CHECK BLOOD SUGARS ONCE DAILY Results No Known Results Summary Purpose eClinicalWorks Submission
--- OUTSIDE RECORDS SUMMARY | 2019-01-19 07:27 | XMS REPORT | Summary of Care ---
:1950 Author Organization [facility] - Health Address [address] [place] [address] Care Team Providers Name Role Phone Fiorella Osorio MD Primary Care Provider Shawn Heredia MD Unavailable Chico Hahn DPMisa Unavailable Encounter Details Date Type Department Care Team Description 01/05/2019 Orders Only [facility] Doctor Unassigned, No [address] [place] [address] [address] [place] [phone] Allergies Active Allergy Reactions Severity Noted Date Comments Bee Pollen Unknown - See comments 11/16/2017 Red itchy eyes, sneezing, runny nose Canagliflozin Other - See comments 06/02/2016 Irregular heart beat Lactose Diarrhea 03/26/2016 Pollen Extracts Unknown - See comments 11/16/2017 Red itchy eyes, sneezing , runny nose Prednisone Nausea and/or Vomiting 04/01/2012 flushed flushed documented as of this encounter (statuses as of 01/05/2019) Medications Medication Sig Dispensed Refills Start Date End Date Status lansoprazole Take 30 mg by 0 Active (PREVACID) 30 mg mouth daily. capsule multivitamin tablet Take 1 Tab by 0 Active mouth daily. Cyanocobalamin Place under the 0 Active (VITAMIN B-12) 2,500 tongue daily. mcg Subl lancets (BD ULTRA 3 times per day 300 Each 3 07/25/2013 Active FINE LANCETS) 33 gauge MiscIndications: Type II or unspecified type diabetes mellitus without mention of complication, uncontrolled metoprolol succinate Take 1 tablet by 90 tablet 3 01/10/2016 Active XL (TOPROL XL) 100 mg mouth daily. 24 hr tablet FEXOFENADINE HCL Take 0.5 tablets 0 Active (SHER ORAL) by mouth daily. blood sugar Check blood sugar 3 Box 3 08/25/2016 Active diagnostic 4 times daily. stripIndications: E116.5 Uncontrolled type 2 diabetes mellitus without complication, with long-term current use of insulin glucagon (GLUCAGON inject 1 mg under 1 mg 1 09/09/2016 Active EMERGENCY KIT, the skin as HUMAN,) 1 mg needed (When injectionIndications: hypoglycemia). Uncontrolled type 2 diabetes mellitus without complication, with long-term current use of insulin HUMULIN R U-500, INJECT UNDER THE 18 Syringe 3 03/31/2017 Active CONC, KWIKPEN 500 SKIN 120 UNITS unit/mL (3 mL) TWICE A DAY InPnIndications: Uncontrolled type 2 diabetes mellitus without complication, with long-term current use of insulin doxepin 5 % cream Apply to area(s) 0 Active 2 (two) times daily as needed for Itching. diclofenac 3 % gel Apply to area(s) 0 Active 4 (four) times daily as needed for Pain (scale 1-3), Pain (scale 4-6) or Pain (scale 7-10). aug betamethasone Apply to area(s) 45 g 1 08/05/2017 Active dipropionate 0.05 % 2 (two) times ointmentIndications: daily as needed Rash (rash). WELCHOL 625 mg TAKE 2 TABLETS BY 360 tablet 1 09/06/2017 Active tabletIndications: MOUTH TWICE A DAY Hyperlipidemia, WITH A MEAL unspecified hyperlipidemia type VICTOZA 3-KEIRY 0.6 INJECT UNDER THE 27 Syringe 3 10/18/2017 Active mg/0.1 mL (18 mg/3 SKIN 0.3 mL) injection MILLILITERS DIALY BI PEN NEEDLE 32 USE 3 TIMES A DAY 100 Each 3 02/23/2018 Active gauge x 5/32" NdleIndications: Uncontrolled type 2 diabetes mellitus without complication, with long-term current use of insulin METFORMIN 1,000 mg TAKE 1 TABLET BY 180 tablet 1 02/28/2018 Active tablet MOUTH TWICE A DAY WITH A MEAL LISINOPRIL 40 mg TAKE 1 TABLET BY 90 tablet 4 03/01/2018 Active tabletIndications: MOUTH EVERY DAY Essential hypertension, benign insulin degludec INJECT 100 UNITS 0 11/15/2018 Active (TRESIBA FLEXTOUCH UNDER THE SKIN U-200) 200 unit/mL (3 DAILY. mL) InPn insulin aspart U-100 INJECT 30 UNITS 0 01/03/2019 Active (NOVOLOG FLEXPEN UNDER THE SKIN 3 U-100 INSULIN) 100 (THREE) TIMES A unit/mL (3 mL) DAY WITH MEALS. injection pregabalin (LYRICA) Take 150 mg by 0 11/23/2018 08/20/2019 Active 150 mg capsule mouth. documented as of this encounter (statuses as of 01/05/2019) Active Problems Problem Noted Date Controlled type 2 diabetes mellitus without complication, with long-term 08/08 current use of insulin Essential hypertension, benign 04/01/2012 HLD (hyperlipidemia) 04/01/2012 Overview: ICD10 Diagnosis Term [employer] Obesity 04/01/2012 Overview: ICD10 Diagnosis Term [employer] documented as of this encounter (statuses as of 01/05/2019) Resolved Problems Problem Noted Date Resolved Date Diabetes mellitus type 2, uncontrolled, without 04/01/2012 08/08/2017 complications Overview: ICD10 Diagnosis Term Director [employer] documented as of this encounter (statuses as of 01/05/2019) Immunizations Name Administration Dates Next Due Influenza High Dose 05/05/2017, 04/14/2017 Pneumococcal Polysaccharide, PPSV23 (PNEUMOVAX) 11/24/2011 documented as of this encounter Social History Tobacco Use Types Packs/Day Years Used Date Never Smoker Smokeless Tobacco: Never Used Alcohol Use Drinks/Week oz/Week Comments No Sex Assigned at Date Recorded Not on file Job Start Date Occupation Industry Not on file Not on file Not on file Travel History Travel Start Travel End No recent travel history available. documented as of this encounter Last Filed Vital Signs Not on filedocumented in this encounter Plan of Treatment Date Type Specialty Care Team Description 01/05/2019 Appointment Radiology Main Gaxiola DO [address] [place] [address] 01/18/2019 Office Visit Pulmonary Disease Deysi Owens [address] [place], [place] [phone] 03/02/2019 Office Visit Pulmonary Disease Main Gaxiola DO [address] [place] [address] Health Maintenance Due Date Last Done Comments DTaP,Tdap,and Td Vaccines (1 - 1968 Tdap) MAMMOGRAM 1989 Zoster Recombinant Vaccine 1999 (SHINGRIX) (1 of 2) Medicare Wellness Visit 2014 Osteoporosis Screening 2014 PNEUMOCOCCAL VACCINES 65+ (1 of 2 2014 11/24/2011 - PCV13) HgA1C 11/24/2017 05/26/2017, 09/09/2016, 06/02/2016, Additional history exists EYE EXAM 03/24/2018 03/24/2017 (Previously completed), 09/11/2015, 06/14/2015 (Previously completed) FOOT EXAM 05/26/2018 05/26/2017, 05/26/2017, 05/25/2016, Additional history exists LDL-C 08/18/2018 08/18/2017, 08/26/2016 URINE MICROALBUMIN 08/18/2018 08/18/2017 CREATININE (SERUM) 11/09/2018 11/09/2017, 01/19/2017, 08/26/2016 INFLUENZA VACCINE 02/12/2019 05/05/2017, 04/14/2017, 03/08/2017, Additional history exists COLONOSCOPY 02/23/2022 02/24/2012 (Previously completed) HEPATITIS C (HCV) SCREEN Completed 06/26/2010 (Previously completed) documented as of this encounter Procedures Procedure Name Priority Date/Time Associated Diagnosis Comments ASSIGNMENT OF BENEFITS Routine 01/05/2019 2:46 PM CDT documented in this encounter Results Not on filedocumented in this encounter Insurance Payer Benefit Plan Subscriber ID Effective Phone Address Type / Group Dates AETNA - AETNA [id number] 2016-[address] Medicare Adv MANAGED MEDICARE [place]V [place] [id number] [place]PO [place] [address] documented as of this encounter
--- OUTSIDE RECORDS SUMMARY | 2019-01-19 07:27 | XMS REPORT | Summary of Care ---
:1950 Author Organization [facility] Address [address] [place] [address] Care Team Providers Name Role Phone Fiorella Osorio MD Primary Care Provider Shawn Heredia MD Unavailable Chico Hahn DPM Unavailable Reason for Visit Reason Comments New Patient Shortness of Breath Patient has SOB when doing physical activity Encounter Details Date Type Department Care Team Description 01/05/2019 Office Visit [facility] ADC Main Gaxiola DO Dyspnea on exertion Pulmonary [facility] (Primary Dx) [address] [place] [address] [phone] Allergies Active Allergy Reactions Severity Noted Date [...] HLD (hyperlipidemia) 04/01/2012 Overview: ICD10 Diagnosis Term [employer] Obesity 04/01/2012 Overview: ICD10 Diagnosis Term [employer] documented as of this encounter (statuses as of 01/05/2019) Resolved Problems Problem Noted Date Resolved Date Diabetes mellitus type 2, uncontrolled, without 04/01/2012 08/08/2017 complications Overview: ICD10 Diagnosis Term [employer] documented as of this encounter (statuses [...] of this encounter Last Filed Vital Signs Vital Sign Reading Time Taken Comments Blood Pressure 171/78 01/05/2019 2:00 PM CDT Pulse 70 01/05/2019 1:50 PM CDT Temperature - - Respiratory Rate - - Oxygen Saturation 95% 01/05/2019 1:50 PM CDT Inhaled Oxygen Concentration - - Weight 112.5 kg (248 lb) 01/05/2019 1:50 PM CDT Height 162.6 cm (5' 4") 01/05/2019 1:50 PM CDT Body Mass Index 42.57 01/05/2019 1:50 PM CDT documented in this encounter Progress Notes Main Gaxiola DO - 01/05/2019 2:00 PM CDT [facility] Chief Complaint: Shortness of breath History of Present Illness: Cora Cash is a 68 year old female with shortness of breath with even minimal exertion. Improved with rest. Does have some leg swelling. Does have orthopnea. No cough. Sees sales representative raw fibers, Dr. Anderson in [place] and had stress test recently. Past Medical History: has a past medical history of Essential hypertension, benign, Irregular heartbeat, Irritable bowel disease, Obesity, Other and unspecified hyperlipidemia, Sciatica, and Type II or unspecified type diabetes mellitus without mention of complication, uncontrolled. Past Surgical History: has a past surgical history that includes laparoscopic tubal ligation; cholecystectomy; appendectomy; and other. Family History: family history includes Cancer in her mother; Coronary Heart Disease in her father; Diabetes in her brother; Hypertension in her father. Social History: reports that she has never smoked. She has never used smokeless tobacco. She reports that she does not drink alcohol or use drugs. Review of Systems: General: (-) fever, (-) chills, (-) weight loss, (-) weight gain, (-) fatigue, ( -) malaise Skin: (-) rash, (-) lesion HEENT: (-) headache, (-) change in hearing, (-) change in vision, (-) nasal discharge, (-) sore throat Neck: (-) pain, (-) difficulty swallowing, (-) mass Heme: (-) bleeding disorder Resp: (+) shortness of breath, (+) dyspnea on exertion Cardio: (-) chest pain, (-) palpitations, (-) syncope GI: (-) abdominal pain, (-) nausea, (-) vomiting, (-) diarrhea, (-) constipation , (-) melena, (-) hematochezia, (-) hematemesis : (-) dysuria, (-) hematuria Endo: (-) heat intolerance, (-) cold intolerance Neuro: (-) numbness, (-) tingling, (-) weakness Back: (-) pain, (-)spasms CHRISTY: (-) muscle pain, (-) joint pain, (-) claudication Psych: (-) anxiety, (-) depression, (-) psychiatric disorder Objective: BP (!) 171/78 (BP Location: Right arm, Patient Position: Sitting, BP CUFF SIZE: Adult Large) | Pulse 70 | Ht 5' 4" (1.626 m) | Wt 248 lb (112.5 kg) | SpO2 95% | BMI 42.57 kg/m General: Alert, in no acute distress Psych: Oriented to person, place, time, and situation Head: Normocephalic, atraumatic Eyes: Conjunctiva clear, extraocular motion intact Mouth: Mucus membranes moist Neck: Supple, trachea midline, no masses Heart: Regular rate and rhythm, no murmurs, rubs, or gallops Lungs: Clear to auscultation bilaterally Abdomen: Soft, non-distended, non-tender to palpation, no masses or organomegaly Ext: 2+ lower extremity edema Msk: No clubbing noted Neuro: Normal gait, no focal deficits noted Lymph: No cervical or supraclavicular lymphadenopathy Labs/Studies: Hx of absolute eosinophilia 3200 (19%) Assessment: ICD-10-CM ICD-9-CM 1. Dyspnea on exertion R06.09 786.09 Plan: Will obtain PFT Will obtain CXR Recommend avoiding salt intake Recommend avoiding high salt foods Follow up 6 weeks documented in this encounter Plan of Treatment Date Type Specialty Care Team Description 01/18/2019 Office Visit Pulmonary Disease Deysi Owens [address] [place], [place] [phone] 03/02/2019 Office Visit Pulmonary Disease Main Gaxiola DO [address] [place] [address] Name Type Priority Associated Diagnoses Order Schedule XR CHEST 2 VW IMAGING Routine Dyspnea on exertion Expected: 01/05/2019, Expires: 01/06/2020 Health Maintenance Due Date Last Done Comments [...] (Previously completed) documented as of this encounter Results Not on filedocumented in this encounter Visit Diagnoses Diagnosis Dyspnea on exertion - Primary Other dyspnea and respiratory abnormality documented in this encounter Insurance Payer Benefit Plan Subscriber ID Effective Phone Address Type / Group Dates AETNA - AETNA [id number] 2016-[place] [address] Medicare Adv MANAGED MEDICARE ADV [place] [id number] [place] [address] documented as of this encounter
--- OUTSIDE RECORDS SUMMARY | 2019-01-19 07:27 | XMS REPORT ---
:1950 Author Organization eClinicalWorks Care Team Providers Name Role Phone BaezaSeverino Provider Role Unavailable Allergies, Adverse Reactions, Alerts [...] Start End Status Dosage System Date Date Zainab Mendiola [facility] 10541651139 - In Vitro Active USE TO CHECK BLOOD SUGARS ONCE DAILY HumuLIN R U-[address] [facility] 90203605341 500 UNIT/ML Active INJECT KwikPen Subcutaneous UNDER THE SKIN 120 UNITS TWICE A DAY aspirin [facility] 0 May 12, Active not 2018 defined Metformin HCl [facility] 34364549655 1000 MG Oral Active TAKE 1 TABLET BY MOUTH TWICE A DAY WITH A MEAL Spironolactone [facility] 12179155082 50 MG Oral Active TAKE 1 TABLET BY MOUTH EVERY DAY Metoprolol [facility] 97806378086 100 MG Oral Active TAKE 1 Succinate ER TABLET BY MOUTH EVERY DAY Welchol [facility] 43002045518 625 MG Oral Active TAKE 2 TABLETS BY MOUTH TWICE A DAY WITH FOOD Lyrica [facility] 53529516295 75 MG Orally May 12, Active 1 capsule Once a day [address] [facility] 00706136472 Oral Active [address] [facility] 38100974270 40 MG Oral Active TAKE 1 TABLET BY MOUTH EVERY DAY Viberzi [facility] 41646495715 75 MG Oral Active (Schedule IV Drug) TAKE 1 TABLET BY MOUTH TWICE A DAY BD Pen Needle [facility] 36303114835 32G X 4 MM Active USE 3 Anni U/F TIMES A DAY Victoza [facility] 33872207759 18 MG/3ML Active INJECT Subcutaneous UNDER THE SKIN 1.8MG EVERY DAY Results No Known Results Summary Purpose eClinicalWorks Submission
--- OUTSIDE RECORDS SUMMARY | 2019-01-19 07:27 | XMS REPORT | Summary of Care ---
:1950 Author Organization [facility] Address [address] [place] [address] Care Team Providers Name Role Phone Fiorella Osorio MD Primary Care Provider Shawn Heredia MD Unavailable Chico Hahn DPMisa Unavailable Reason for Visit Auth/Cert Status Reason Specialty Diagnoses / Procedures Referred By Contact Referred To Contact Radiology Diagnoses Other forms of dyspnea Adc X-Ray Procedures CHG CHEST X-RAY 2 [address] [place] [address] Encounter Details Date Type Department Care Team Description 01/05/2019 Hospital Encounter [facility] Main Gaxiola DO Arrived [place] [facility] [address] [place] [address] [place], [place] [phone] [address] Allergies Active Allergy Reactions Severity Noted Date Comments Bee Pollen Unknown - See comments 11/16/2017 Red itchy eyes, sneezing, runny nose Canagliflozin Other - See comments 06/02/2016 Irregular heart beat Lactose Diarrhea 03/26/2016 Pollen Extracts Unknown - See comments 11/16/2017 Red itchy eyes, sneezing , runny nose Prednisone Nausea and/or Vomiting 04/01/2012 flushed flushed documented as of this encounter (statuses as of 01/06/2019) Medications Medication Sig Dispensed Refills Start Date [...] as of this encounter (statuses as of 01/06/2019) Active Problems Problem Noted Date Controlled type 2 diabetes mellitus without complication, with long-term 08/08 current use of insulin Essential hypertension, benign 04/01/2012 HLD (hyperlipidemia) 04/01/2012 Overview: ICD10 Diagnosis Term Nuclear Reactor Technician Utility Obesity 04/01/2012 Overview: ICD10 Diagnosis Term Nuclear Reactor Technician Utility documented as of this encounter (statuses as of 01/06/2019) Resolved Problems Problem Noted Date Resolved Date Diabetes mellitus type 2, uncontrolled, without 04/01/2012 08/08/2017 complications Overview: ICD10 Diagnosis Term Nuclear Reactor Technician Utility documented as of this encounter (statuses as of 01/06/2019) Immunizations Name Administration Dates Next Due Influenza [...] 01/18/2019 Office Visit Pulmonary Disease Deysi Owens [address] Ackerman [address] [place] [address] [phone] 03/02/2019 Office Visit Pulmonary Disease Main Gaxiola DO 2660 [place] [address] Health Maintenance Due Date Last Done Comments [...] Procedure Name Priority Date/Time Associated Diagnosis Comments XR CHEST 2 VW Routine 01/05/2019 3:04 PM Dyspnea on exertion Results for this CDT procedure are in the results section. documented in this encounter Results XR CHEST 2 VW (01/05/2019 3:04 PM CDT) Specimen Narrative Performed At HISTORY: Dyspnea. PACS/VR/DOSE TECHNIQUE: PA and lateral views of the chest are obtained. No prior chest study available for comparison. FINDINGS: No acute pneumonia detected. No pneumothorax or pleural effusion or pulmonary congestion. Cardiothoracic ratio of approximately 16.2/31.2 cm is consistent with mild cardiomegaly. Degenerative changes noted in the middle and lower thoracic spines. Cholecystectomy clips are seen in the right upper abdomen. CONCLUSIONS: Mild cardiomegaly. Procedure Note [facility], Radiant Results Inft User - 01/05/2019 3:08 PM CDT HISTORY: Dyspnea. TECHNIQUE: PA and lateral views of the chest are obtained. No prior chest study available for comparison. FINDINGS: No acute pneumonia detected. No pneumothorax or pleural effusion or pulmonary congestion. Cardiothoracic ratio of approximately 16.2/31.2 cm is consistent with mild cardiomegaly. Degenerative changes noted in the middle and lower thoracic spines. Cholecystectomy clips are seen in the right upper abdomen. CONCLUSIONS: Mild cardiomegaly. Performing Organization Address City/State/Zipcode Phone Number PACS/VR/DOSE documented in this encounter Visit Diagnoses Diagnosis Dyspnea on exertion Other dyspnea and respiratory abnormality documented in this encounter Insurance Payer Benefit Plan Subscriber ID Effective Phone Address Type / Group Dates AETNA - AETNA [id number] 2016-Nathan [address] Medicare Adv MANAGED MEDICARE ADV nt [id number] [place] [address] documented as of this encounter
--- OUTSIDE RECORDS SUMMARY | 2019-01-19 07:27 | XMS REPORT ---
[...] Dosage System Date Date HumuLIN R U-500 [facility] [place] [id number] 500 UNIT/ML Active INJECT KwikPen Subcutaneous UNDER THE SKIN 120 UNITS TWICE A DAY Welchol [facility] [place] 43582396212 625 MG Oral Active TAKE 2 TABLETS BY MOUTH TWICE A DAY WITH FOOD Metformin HCl [facility] [place] [id number] 1000 MG Oral Active TAKE 1 TABLET BY MOUTH TWICE A DAY WITH A MEAL aspirin [facility] [place] 0 May 12, Active not 2018 defined BD Pen Needle [facility] [place] [id number] 32G X 4 MM Active USE 3 Anni U/F TIMES A DAY OneTouch Verio [facility] [place] [id number] - In Vitro Active USE TO CHECK BLOOD SUGARS ONCE DAILY Victoza [facility] [place] 48394764613 18 MG/3ML Active INJECT Subcutaneous UNDER THE SKIN 1.8MG EVERY DAY Lisinopril [facility] [place] 48069791058 40 MG Oral Active TAKE 1 TABLET BY MOUTH EVERY DAY Metoprolol [facility] [place] 79422076448 100 MG Oral Active TAKE 1 Succinate ER TABLET BY MOUTH EVERY DAY Lyrica [facility] [place] 18617598072 75 MG Orally May 12, Active 1 capsule Once a day 2017 Spironolactone [facility] [place] 38504198049 50 MG Oral Active TAKE 1 TABLET BY MOUTH EVERY DAY ibuprofen [facility] [place] 52098705406 Oral Active 1 tab Viberzi [facility] [place] 72201532717 75 MG Oral Active (Schedule IV Drug) TAKE 1 TABLET BY MOUTH TWICE A DAY Results No Known Results Summary Purpose eClinicalWorks Submission
--- OUTSIDE RECORDS SUMMARY | 2019-01-19 07:28 | XMS REPORT | Summary of Care ---
:1950 Author Organization [facility] Address [address] [place] [address] Care Team Providers Name Role Phone Fiorella Osorio MD Primary Care Provider Shawn Heredia MD Unavailable Chico Hahn DPM Unavailable Reason for Visit Reason Comments Follow-up CPAP Compliance Obstructive Sleep Apnea Encounter Details Date Type Department Care Team Description 01/18/2019 Office Visit [facility] Deysi Owens Obstructive sleep Pulmonary Clinic [address] [facility] apnea on CPAP [address] [facility] , [facility] 106 (Primary Dx) [address] [phone] [address] [phone] Allergies Active Allergy Reactions Severity Noted Date Comments Bee Pollen Unknown - See comments 11/16/2017 Red itchy eyes, sneezing, runny nose Canagliflozin Other - See comments 06/02/2016 Irregular heart beat Lactose Diarrhea 03/26/2016 Pollen Extracts Unknown - See comments 11/16/2017 Red itchy eyes, sneezing , runny nose Prednisone Nausea and/or Vomiting 04/01/2012 flushed flushed documented as of this encounter (statuses as of 01/18/2019) Medications Medication Sig Dispensed Refills Start Date [...] as of this encounter (statuses as of 01/18/2019) Active Problems Problem Noted Date Controlled type 2 diabetes mellitus without complication, with long-term 08/08 current use of insulin Essential hypertension, benign 04/01/2012 HLD (hyperlipidemia) 04/01/2012 Overview: ICD10 Diagnosis Term Breakfast Attendant Utility Obesity 04/01/2012 Overview: ICD10 Diagnosis Term Breakfast Attendant Utility documented as of this encounter (statuses as of 01/18/2019) Resolved Problems Problem Noted Date Resolved Date Diabetes mellitus type 2, uncontrolled, without 04/01/2012 08/08/2017 complications Overview: ICD10 Diagnosis Term Breakfast Attendant Utility documented as of this encounter (statuses as of 01/18/2019) Immunizations Name Administration Dates Next Due Influenza [...] Sign Reading Time Taken Comments Blood Pressure 202/81 01/18/2019 9:46 AM CDT Pulse 62 01/18/2019 9:42 AM CDT Temperature - - Respiratory Rate 19 01/18/2019 9:42 AM CDT Oxygen Saturation 97% 01/18/2019 9:42 AM CDT Inhaled Oxygen Concentration - - Weight 110.5 kg (243 lb 9.6 oz) 01/18/2019 9:42 AM CDT Height 162.6 cm (5' 4") 01/18/2019 9:42 AM CDT Body Mass Index 41.81 01/18/2019 9:42 AM CDT documented in this encounter Progress Notes Deysi Owens - 01/18/2019 3:30 PM CDTReason for Clinic Visit: The patient is currently under Positive Airway Pressure (PAP) treatment forObstructive Sleep Apnea (BRIDGETTE). Chief Complaint: Obstructive Sleep Apnea History of Present Illness: The usual bed time is 11:30 p.m. and wake up time is 7 a.m. The patient does take intentional naps during the day. The patient does not suffer from irresistible sleep attacks during the day. The patient does not experience sudden loss of muscle tone when emotional or excited. The patient does not report vivid dream-like images and loss of muscle tone when falling asleep and upon awakening. [place] Sleepiness Scale score: 9 (0-24). Social History: The patient does not smoke cigarettes. The patient does not drink alcoholic beverages. Caffeinated beverages consumption: 1-2 per day. Family History: The family history is positive for snoring in blood relatives. Physical Examination: 1) Vital signs: as noted above. 2) General: the patient is pleasant, well developed, and in NAD. 3) Skin: there are no rashes, edema, or abnormal pigmentation. 4) Head: there are no skull deformities or pathological facial asymmetry. 5) Eyes: pupils are equal, round, and reactiveto light; extraocular movements are conjugate and unrestricted, without strabismus or nystagmus. 6) ENT: oropharynx reveals low set soft palate and elongated uvula ; the patient displays a good sniff through both the right and left nostril. 7) Neck: there are no distended veins or enlarged lymph nodes.8) Back: straight, spine - without pathological curvatures. 9) Bilateral lower extremities are without edema. 10) Neurological - patient is alert, oriented and answers questions appropriately. Review of Systems: 1)Respiratory: positive for snoring and witnessed apneas; 2)Cardiovascular: positive for hypertension; 3)Endocrine/Metabolic: positive for diabetes mellitus ; 4)Digestive: negative for abnormalities; 5)Urinary: positive for nocturia; 6) Skeletal: no skeletal abnormalities detected; 7)Muscular: negative for muscular abnormalities; 8)Nervous: no neurological or psychological abnormalities; 9) Integumentary: no visible or reported skin or hair abnormalities; 10) Reproductive: no reproductive abnormalities noted; 11)Immune/Lymphatic/Allergy: positive for respiratory allergies. Sleep Study Results and PAP Compliance: The diagnostic polysomnography on 2017 revealed respiratory disturbance index of 21.8 events/hr of total sleep with a minimum oxygen saturation of 61% during the recording. During the therapeutic night on 09/29/2018, CPAP was titrated to a pressure of 14 cmH2O which was effective in normalizing patient's breathing during sleep. The patient reports increased daytime alertness while using the machine on an average of 4 hours 50 minutes during sleep at home(70% of the nights for >4 hours). The patient tolerates the PAP mask well. No side effects of PAPtreatment are reported. Impression: The patient is compliant with, benefiting from PAP treatment, and needs to continue regular PAP use. Diagnosis: Obstructive Sleep Apnea Syndrome clinically well controlled by CPAP treatment G47.33 Recommendations and Patient Education: The condition of Obstructive Sleep Apnea was discussed with the patient and the possible consequences of untreated sleep apnea regarding quality of sleep, daytime alertness, and cardiovascular complications were underlined. All of patients questions were welcomed and thoroughly answered. The patient was encouraged to continue regular PAP treatment at home at 14 cm H2O. Additional time was spent discussing sleep hygiene including: regular bedtime and wake-up times; enough sleep hours; going to bed only when sleepy; using bed for the sole purpose of sleeping; avoidanceof: 1) caffeinated and alcoholic beverages, 2) strenuous cognitive activity, or 3) heavy meals in the evening. The patient reported efforts to implement these sleep hygiene measures at home and had some additional questions which were answered in detail. A follow up visit as needed was also recommended. The patient was instructed to contact us in case of any further questions, concerns, problems, or side effects of PAP treatment. documented in this encounter Plan of Treatment Date Type Specialty Care Team Description 01/24/2019 Diesel Engine Ii Pipe Fitter Visit Pulmonary Function Domenico Nuñez Technologist [address] [place] [address] [phone] 03/02/2019 Office Visit Pulmonary Disease Main Gaxiola DO [address] [place] [address] Health Maintenance Due Date Last Done Comments [...] filedocumented in this encounter Visit Diagnoses Diagnosis Obstructive sleep apnea on CPAP - Primary Obstructive sleep apnea (adult) (pediatric) documented in this encounter Insurance Payer Benefit Plan Subscriber ID Effective Phone Address Type / Group Dates AETNA - AETNA [id number] 2016-Nathan [address] Medicare Adv MANAGED MEDICARE ADV nt [id number] [place] [address] documented as of this encounter
--- OUTSIDE RECORDS SUMMARY | 2019-01-19 07:28 | XMS REPORT | Summary of Care ---
:[address] [facility] - Health Address [address] [place] [address] Care Team Providers Name Role Phone Fiorella Osorio MD Primary Care Provider Shawn Heredia MD Unavailable Chico Hahn DPMisa Unavailable Encounter Details Date Type Department Care Team Description 01/18/[address] [facility] Doctor Unassigned, No 301 [facility] [place] [address] [address] [place] [id number] Allergies Active Allergy Reactions Severity Noted Date [...] HLD (hyperlipidemia) 04/01/2012 Overview: ICD10 Diagnosis Term Chief Scientist Utility Obesity 04/01/2012 Overview: ICD10 Diagnosis Term Chief Scientist Utility documented as of this encounter (statuses as of 01/18/2019) Resolved Problems Problem Noted Date Resolved Date Diabetes mellitus type 2, uncontrolled, without 04/01/2012 08/08/2017 complications Overview: ICD10 Diagnosis Term Chief Scientist Utility documented as of this encounter (statuses [...] 01/18/2019 Office Visit Pulmonary Disease Deysi Owens Obstructive sleep T apnea on CPAP [address] [facility] (Primary Dx) [facility] 106 [place] [address] [phone] 01/24/2019 Steel Analyst Visit Pulmonary Function Domenico Nuñez Technologist G [address] [place], [place] [address] 03/02/2019 Office Visit Pulmonary Disease Main Gaxiola DO 2660 [place] [address] 01/24/2020 Office Visit Pulmonary Disease Deysi Owens [address] [place] [address] [place] [address] [phone] Health Maintenance Due Date Last Done Comments [...] Procedure Name Priority Date/Time Associated Diagnosis Comments DME/SUPPLY JUSTIFICATION Routine 01/18/2019 12:01 AM CDT documented in this encounter Results Not on filedocumented in this encounter Insurance Payer Benefit Plan Subscriber ID Effective Phone Address Type / Group Dates AETNA - AETNA [id number] 2016-Prese [address] Medicare Adv MANAGED MEDICARE ADV nt [id number] [place] [address] documented as of this encounter
--- OUTSIDE RECORDS SUMMARY | 2019-01-19 07:28 | XMS REPORT | Summary of Care ---
:1950 Author Organization [facility] Address [address] [place] [address] Care Team Providers Name Role Phone Fiorella Osorio MD Primary Care Provider Shawn Heredia MD Unavailable Chico Hahn DPM Unavailable Reason for Referral (Routine) Status Reason Specialty Diagnoses / Referred By Referred To Procedures Contact Contact New Request Pulmonary Function Diagnoses Dyspnea, unspecified type Main Gaxiola, Technologist Procedures DIAGNOSTIC PROCEDURE Preferred Location: [facility] PFT Lab-Main [address] [address] Reason for Visit Reason Comments Orders Encounter Details Date Type Department Care Team Description 01/11/2019 Telephone [facility] Pulmonary Main Gaxiola DO Orders Clinic [address] , [address] [place] [address] Allergies Active Allergy Reactions Severity Noted Date Comments Bee Pollen Unknown - See comments 11/16/2017 Red itchy eyes, sneezing, runny nose Canagliflozin Other - See comments 06/02/2016 Irregular heart beat Lactose Diarrhea 03/26/2016 Pollen Extracts Unknown - See comments 11/16/2017 Red itchy eyes, sneezing , runny nose Prednisone Nausea and/or Vomiting 04/01/2012 flushed flushed documented as of this encounter (statuses as of 01/12/2019) Medications Medication Sig Dispensed Refills Start Date [...] as of this encounter (statuses as of 01/12/2019) Active Problems Problem Noted Date Controlled type 2 diabetes mellitus without complication, with long-term 08/08 current use of insulin Essential hypertension, benign 04/01/2012 HLD (hyperlipidemia) 04/01/2012 Overview: ICD10 Diagnosis Term Senior Asic Design Engineer Utility Obesity 04/01/2012 Overview: ICD10 Diagnosis Term Senior Asic Design Engineer Utility documented as of this encounter (statuses as of 01/12/2019) Resolved Problems Problem Noted Date Resolved Date Diabetes mellitus type 2, uncontrolled, without 04/01/2012 08/08/2017 complications Overview: ICD10 Diagnosis Term Senior Asic Design Engineer Utility documented as of this encounter (statuses as of 01/12/2019) Immunizations Name Administration Dates Next Due Influenza [...] Treatment Date Type Specialty Care Team Description 03/02/2019 Office Visit Pulmonary Disease Main Gaxiola DO [address] [place] [address] Name Type Priority Associated Diagnoses Order Schedule DIAGNOSTIC PROCEDURE PULMONARY FUNCTION Routine Dyspnea, unspecified Ordered: Preferred Location: LAB type 01/12/2019 [facility] PFT Lab-Main Health Maintenance Due Date Last Done Comments [...] filedocumented in this encounter Visit Diagnoses Diagnosis Dyspnea, unspecified type - Primary documented in this encounter Insurance Payer Benefit Plan Subscriber ID Effective Phone Address Type / Group Dates AETNA - AETNA [id number] 2016-Prese [address] Medicare Adv MANAGED MEDICARE ADV nt [id number] [place] [address] documented as of this encounter
--- OUTSIDE RECORDS SUMMARY | 2019-01-19 07:28 | XMS REPORT | Summary of Care ---
:1950 Author Organization [facility] Address [address] [place] [address] Care Team Providers Name Role Phone Fiorella Osorio MD Primary Care Provider Shawn Heredia MD Unavailable Chico Hahn DPM Unavailable Reason for Visit Reason Comments Follow-up CPAP Compliance Obstructive Sleep Apnea Encounter Details Date Type Department Care Team Description 01/18/2019 Office Visit [facility] Deysi Owens Obstructive sleep Pulmonary Clinic [address] [facility] apnea on CPAP 146 [facility] , [facility] 106 (Primary Dx) [address] [phone] [address] [phone] Allergies Active Allergy Reactions Severity Noted Date [...] HLD (hyperlipidemia) 04/01/2012 Overview: ICD10 Diagnosis Term Guest Attendant Utility Obesity 04/01/2012 Overview: ICD10 Diagnosis Term Guest Attendant Utility documented as of this encounter (statuses as of 01/18/2019) Resolved Problems Problem Noted Date Resolved Date Diabetes mellitus type 2, uncontrolled, without 04/01/2012 08/08/2017 complications Overview: ICD10 Diagnosis Term Guest Attendant Utility documented as of this encounter [...] tone when falling asleep and upon awakening. Midnight Sleepiness Scale score: 9 (0-24). Social History: [...] Date Type Specialty Care Team Description 01/24/2019 Telephone Service Adviser Visit Pulmonary Function Domenico Nuñez Technologist [address] [place] [address] [phone] 03/02/2019 Office Visit Pulmonary Disease Serina Gaxiolaparrishrei [address] [place] [address] 01/24/2020 Office Visit Pulmonary Disease Deysi Owens [address] [place] [address] [place] [address] [phone] Health Maintenance Due Date Last Done Comments [...] Type / Group Dates AETNA - AETNA [id number] 2016-Prese [address] Medicare Adv MANAGED MEDICARE ADV nt [id number] [place] [address] documented as of this encounter
--- OUTSIDE RECORDS SUMMARY | 2019-01-19 07:28 | XMS REPORT | Summary of Care ---
:[address] [facility] Address [address] [place] [address] Care Team Providers Name Role Phone Fiorella Osorio MD Primary Care Provider Shawn Heredia MD Unavailable Chico Hahn DPM Unavailable Reason for Visit Reason Comments Follow-up CPAP Compliance Obstructive Sleep Apnea Encounter Details Date Type Department Care Team Description 01/18/2019 Office Visit [facility] Deysi Owens Obstructive sleep Pulmonary Clinic [address] [facility] apnea on CPAP [address] [facility] , [facility] 106 (Primary Dx) [address] [phone] [address] [phone] Allergies Active Allergy Reactions Severity Noted Date [...] HLD (hyperlipidemia) 04/01/2012 Overview: ICD10 Diagnosis Term Environmental Health Safety Engineer Utility Obesity 04/01/2012 Overview: ICD10 Diagnosis Term Environmental Health Safety Engineer Utility documented as of this encounter (statuses as of 01/18/2019) Resolved Problems Problem Noted Date Resolved Date Diabetes mellitus type 2, uncontrolled, without 04/01/2012 08/08/2017 complications Overview: ICD10 Diagnosis Term Environmental Health Safety Engineer Utility documented as of this encounter [...] tone when falling asleep and upon awakening. [place] Sleepiness Scale score: 9 (0-24). Social History: [...] Date Type Specialty Care Team Description 01/24/2019 Retail Advertising Sales Manager Visit Pulmonary Function Domenico Nuñez Technologist [address] [place] [address] [phone] 03/02/2019 Office Visit Pulmonary Disease Serina Gaxiolaparrishrei [address] [place] [address] 01/24/2020 Office Visit Pulmonary Disease Deysi Owens [address] [place] [address] [place] [address] [phone] Health Maintenance Due Date Last Done Comments [...] Type / Group Dates AETNA - AETNA [id number] 2016-Prese [address] Medicare Adv MANAGED MEDICARE ADV nt [id number] [place] [address] documented as of this encounter
--- OUTSIDE RECORDS SUMMARY | 2019-01-19 07:28 | XMS REPORT | Summary of Care ---
:1950 Author Organization [facility] Address [address] [place] [id number] Care Team Providers Name Role Phone Fiorella Osorio MD Primary Care Provider Shawn Heredia MD Unavailable Ch[place] Hahn DPM Unavailable Reason for Visit Reason Comments Follow-up CPAP Compliance Obstructive Sleep Apnea Encounter Details Date Type Department Care Team Description 01/18/2019 Office Visit [facility] Deysi Owens Obstructive sleep [facility] [address] [facility] apnea on CPAP [address] [facility] , [facility] [address] (Primary Dx) [address] [phone] [address] [phone] Allergies Active Allergy Reactions Severity Noted Date [...] HLD (hyperlipidemia) 04/01/2012 Overview: ICD10 Diagnosis Term Mixer Driver Utility Obesity 04/01/2012 Overview: ICD10 Diagnosis Term Mixer Driver Utility documented as of this encounter (statuses as of 01/18/2019) Resolved Problems Problem Noted Date Resolved Date Diabetes mellitus type 2, uncontrolled, without 04/01/2012 08/08/2017 complications Overview: ICD10 Diagnosis Term Mixer Driver Utility documented as of this encounter (statuses [...] tone when falling asleep and upon awakening. [place] Sleepiness Scale score: 9 (0-24). Social History: [...] Date Type Specialty Care Team Description 01/24/2019 Senior Electrical Estimator Visit Pulmonary Function Domenico Nuñez Technologist [id number] [place] [address] [phone] 03/02/2019 Office Visit Pulmonary Disease Main [place] DO [address] [place] [id number] Health Maintenance Due Date Last Done Comments [...] Type / Group Dates AETNA - AETNA [id number] 2016-Nathan [address] Medicare Adv MANAGED MEDICARE ADV nt [id number] [place] [address] documented as of this encounter
[2019-01-19] MEDS ORDERED: NA CHLORIDE 0.9% 500 ML ONE (07:46)
[2019-01-19] MEDS ORDERED: HEPA 1000U/500MLS 2,000 UNIT/1,000 ML BAG IV ONE (07:53)
[2019-01-19] MEDS ORDERED: HEPA 1000U/500MLS 1,000 UNIT/500 ML BAG IV ONE (09:29)
[2019-01-19] MEDS ORDERED: LIDOCAINE 1% MPF 30 ML VIAL ONE (09:29)
[2019-01-19] MEDS ORDERED: MIDAZOLAM HCL 2 MG/2 ML INJ ONE (09:42)
[2019-01-19] MEDS ORDERED: ATROPINE SULF 1 MG/10 ML SYR IV ONE (09:42)
[2019-01-19] MEDS ORDERED: FENTANYL CITR 100 MCG/2 ML ONE (09:42)
[2019-01-19] MEDS ORDERED: cloNIDine HCl 0.1 MG TAB ONE ×2 (10:11→10:42)
[2019-01-19] MEDS ORDERED: METOPROLOL TARTRATE 5 MG/5 ML INJ IV ONE ×3 (10:13→10:30)
[2019-01-19 13:12] VITALS: BP 121/44; TEMP 97; O2SAT 95
--- NOTE | 2019-01-19 21:58 | OP ---
Date of Procedure: 01/19/2019 Surgeon: Jesse Boone MD Humanities And Languages Professor: Zhanna Varela. Procedures: Abdominal angiogram with runoff and selective left common femoral artery angiogram. Indications: Peripheral arterial disease, pedal edema, abnormal arterial Doppler. Description Of Procedure: Ms. Cash was brought in as an outpatient. She was given 2 mg of Versed f or sedation. She was very hypertensive with pressure in the 250 systolic. She received 50 mg of Lop ressor IV total along with 0.1 of clonidine during and before the angiography. Abdominal angiogram w ith runoff was done along with selective left common femoral artery angiogram. The abdominal angiogr am with runoff was done using a pigtail catheter after using a 6-Samoan sheath in the right common fe moral artery. Just showed what appeared to be some diffuse disease in the distal LAD and anterior ti bial bilaterally without any focal stenosis. To reaffirm that, a Glidewire was used up and over the bifurcation of the iliac. A MONREAL catheter was advanced into the left common femoral artery, and an i njection was done selectively, confirming that the left anterior tibial was mostly diffusely diseased without any focal stenosis. 6-Samoan catheters were used. No complications. Blood Loss: 5 cc. Total Conscious Sedation: 30 minutes. Postoperative Diagnosis: Mild peripheral arterial disease. Medical therapy is the plan. Plan: Patient will be going home today. I will see the patient in 2 weeks. KERRIE/KATHE Voice ID: [id number] Report ID: [id number]
== END 2019-01-19 13:11 | disposition home or self-care (01) ==
LOC: CCL 07:23
PROC: B40DYZZ Plain Radiography of Aorta and Bilateral Lower Extremity Arteries using Other Contrast (ICD-10-PCS; principal; 2019-01-19)
DX: I70.213 Atherosclerosis of native arteries of extremities with intermittent claudication, bilateral legs (principal); G62.9 Polyneuropathy, unspecified; R60.9 Edema, unspecified; I10 Essential (primary) hypertension; E78.5 Hyperlipidemia, unspecified; E11.9 Type 2 diabetes mellitus without complications; Z88.8 Allergy status to other drugs, medicaments and biological substances
CPT/HCPCS: 36246; 75630; 93005; 85025; 80048; 36415; 85610; 82962 ×2; 85730; 71046; C1893; C1760; C1887; C1769; J2250; J3010